=== PATIENT | male | born 1935 | race Caucasian/White ===

== ENCOUNTER 2018-12-07 15:58 | Inpatient (IN) | payer OTHER ==
--- NOTE | 2018-12-07 16:13 | EDPHY ---
H & P Time Seen by Provider: 12/07/18 16:01 HPI/ROS: Chief complaint. Weakness HPI. 83-year-old male with 10 days of cough and congestion. He now has dyspnea on exertion. Generalized weakness and fatigue. He went to the gym today and came home took a nap for 2 hr which is unusual. Decreased appetite. No chest pain. No fever that he is aware. He feels that he is off balance and fall and today was driving home from the gym and ended up on the sidewalk in his car. No injury and no damage. No abdominal pain, vomiting, diarrhea. Denies urinary symptoms. No rash. He did have flu 2 months ago and this feels similar. However no known recent sick contacts other than going to the rec center most days. ROS 10 systems were reviewed and negative with the exception of the elements mentioned in the history of present illness Past Medical/Surgical History: Gout, diabetes, hypertension Social History: , nonsmoker, no alcohol Smoking Status: Former smoker Physical Exam: General Appearance: Alert well-developed male moderate distress vital signs show temp 37.4 degrees, heart rate 115, O2 saturation 88-90% on room air. Blood pressure stable 143/66 Eyes: Pupils equal and round no pallor or injection. ENT, pharynx mildly injected without exudate Respiratory: Distant breath sounds. Mild rhonchi. Cardiovascular: Regular rate and rhythm with tachycardia Gastrointestinal: Abdomen is soft and nontender, no masses, bowel sounds normal. Neurological: Awake and alert, sensory and motor exams grossly normal. Skin: Warm and dry, no rashes. Musculoskeletal: Neck is supple nontender. Extremities symmetrical, full range of motion. Psychiatric: Patient is oriented X 3, there is no agitation. Constitutional: Initial Vital Signs Temperature (C) 37.4 C 12/07/18 16:06 Heart Rate 115 H 12/07/18 16:06 Respiratory Rate 16 12/07/18 16:06 Blood Pressure 143/66 H 12/07/18 16:06 O2 Sat (%) 91 L 12/07/18 16:06 O2 Delivery Mode Room Air O2 (L/minute) 2 Allergies/Adverse Reactions: No Known Allergies Allergy (Unverified 12/07/18 16:05) Home Medications: Medication Instructions Recorded Allopurinol 12/07/18 Losartan Potassium 12/07/18 Lovastatin 12/07/18 Metformin HCl 12/07/18 Pantoprazole Sodium 12/07/18 Medical Decision Making - Diagnostics EKG Interpretation: EKG interpreted by me shows sinus tachycardia. Normal interval. Left axis deviation. QRS normal there is no significant ST elevation or depression. Rate is 112 Imaging Results: Chest x-ray interpreted by me shows early right side pneumonia. Procedures: IV normal saline. Monitor. Oxygen Sepsis workup ED Course/Re-evaluation: Lactate is negative. IV Rocephin after blood cultures Patient is re-evaluated at 5:15 p.m.. He stable though remains tachycardic. Patient is and I discussed treatment plan including recommendation for admission. He expresses understanding and agreement I consulted discussed the case with who agrees to the admission Differential Diagnosis: I considered pneumonia, COPD, influenza. Patient is tachycardic though improved. He is hypoxic. No evidence for sepsis - Data Points Laboratory Results: Laboratory Results 12/07/18 16:20 12/07/18 16:20 12/07/18 12/07/18 12/07/18 17:08 17:07 17:00 WBC RBC Hgb Hct MCV MCH MCHC RDW Plt Count MPV Neut % (Auto) Lymph % (Auto) Newton % (Auto) Eos % (Auto) Baso % (Auto) Nucleat RBC Rel Count Absolute Neuts (auto) Absolute Lymphs (auto) Absolute Monos (auto) Absolute Eos (auto) Absolute Basos (auto) Absolute Nucleated RBC Immature Gran % Immature Gran # Platelet Estimate Smear Review By PT INR APTT VBG Lactic Acid 1.2 mmol/L mmol/L (0.7-2.1) Sodium Potassium Chloride Carbon Dioxide Anion Gap BUN Creatinine Estimated GFR Glucose Calcium Total Bilirubin POC Troponin I 0.03 ng/mL ng/mL (0.00-0.08) Nasal Influenza A PCR Pending Nasal Influenza B PCR Pending 12/07/18 12/07/18 12/07/18 16:20 16:20 16:20 WBC 22.96 10^3/uL H 10^3/uL (3.80-9.50) RBC 2.42 10^6/uL L 10^6/uL (4.40-6.38) Hgb 9.7 g/dL L g/dL (13.7-17.5) Hct 27.9 % L % (40.0-51.0) MCV 115.3 fL H fL (81.5-99.8) MCH 40.1 pg H pg (27.9-34.1) MCHC 34.8 g/dL g/dL (32.4-36.7) RDW 15.1 % % (11.5-15.2) Plt Count 149 10^3/uL L 10^3/uL (150-400) MPV 11.3 fL fL (8.7-11.7) Neut % (Auto) Pending Lymph % (Auto) Pending Newton % (Auto) Pending Eos % (Auto) Pending Baso % (Auto) Pending Nucleat RBC Rel Count Pending Absolute Neuts (auto) Pending Absolute Lymphs (auto) Pending Absolute Monos (auto) Pending Absolute Eos (auto) Pending Absolute Basos (auto) Pending Absolute Nucleated RBC Pending Immature Gran % Pending Immature Gran # Pending Platelet Estimate Pending Smear Review By Pending PT 16.3 SEC H SEC (12.0-15.0) INR 1.29 H (0.83-1.16) APTT 30.7 SEC SEC (23.0-38.0) VBG Lactic Acid Sodium 128 mEq/L L mEq/L (135-145) Potassium 4.3 mEq/L mEq/L (3.5-5.2) Chloride 93 mEq/L L mEq/L (97-110) Carbon Dioxide 22 mEq/l mEq/l (22-31) Anion Gap 13 mEq/L mEq/L (6-14) BUN 22 mg/dL mg/dL (7-23) Creatinine 1.6 mg/dL H mg/dL (0.7-1.3) Estimated GFR 42 Glucose 124 mg/dL H mg/dL (70-100) Calcium 9.2 mg/dL mg/dL (8.5-10.4) Total Bilirubin 0.9 mg/dL mg/dL (0.1-1.4) POC Troponin I Nasal Influenza A PCR Nasal Influenza B PCR Medications Given: Discontinued Medications Albuterol/Ipratropium (Duoneb) 3 ml IH EDNOW ONE Stop: 12/07/18 16:26 Last Admin: 12/07/18 16:43 Dose: 3 ml Sodium Chloride (Ns) 1,000 mls @ 0 mls/hr IV EDNOW ONE; Wide Open PRN Reason: Protocol Stop: 12/07/18 16:26 Last Admin: 12/07/18 16:43 Dose: 1,000 mls Point of Care Test Results: Chemistry 12/07/18 17:07 POC Troponin I 0.03 ng/mL ng/mL (0.00-0.08) Departure - Departure Disposition: [facility] Inpatient Acute Clinical Impression: Pneumonia Qualifiers: Pneumonia type: due to unspecified organism Laterality: right Lung location: lower lobe of lung Qualified Code(s): J18.1 - Lobar pneumonia, unspecified organism Condition: Fair Referrals: Patient,NotPresent [Unknown] - As per Instructions
[2018-12-07] MEDS ORDERED: IPRATROPIUM/ALBUTEROL 3 ML DEYVIAL IH ONE (16:25)
[2018-12-07] MEDS ORDERED: NS 1,000 ML IV ONE (16:25)
[2018-12-07 16:53] LABS: PLATELET COUNT 149 10^3/uL (150-400)
[2018-12-07 17:06] LABS: INR 1.29 (0.83-1.16); PROTIME(PATIENT) 16.3 SEC (12.0-15.0)
[2018-12-07] MEDS ORDERED: PROMETHAZINE HCL 25 MG/ML INJ IVP PRN (18:39)
[2018-12-07] MEDS ORDERED: ONDANSETRON DISINTEGRATING 4 MG TAB PO PRN (18:39)
[2018-12-07] MEDS ORDERED: ACETAMINOPHEN 325 MG TAB PO PRN (18:39)
[2018-12-07] MEDS ORDERED: ONDANSETRON 4 MG/2 ML VIAL IVP PRN (18:39)
[2018-12-07] MEDS ORDERED: ALBUTEROL 3 ML DEYVIAL IH PRN (18:39)
[2018-12-07] MEDS ORDERED: NS 1,000 ML IV SCH (18:45)
--- NOTE | 2018-12-07 19:43 | CPEKG ---
Test Reason : OPEN Blood Pressure : / mmHG Vent. Rate : 112 BPM Atrial Rate : 112 BPM P-R Int : 171 ms QRS Dur : 085 ms QT Int : 344 ms P-R-T Axes : 060 -18 000 degrees QTc Int : 470 ms Sinus tachycardia Probable LVH with secondary repol abnrm Anterior Q waves, possibly due to LVH Confirmed by Rick Whitt ([id number]) on 12/07/2018 7:42:51 PM Referred By: Confirmed By:Rick Whitt
--- NOTE | 2018-12-07 19:45 | PDGENHP ---
History and Physical - Chief Complaint cough/sob - History of Present Illness 83 yo M with PMH that includes DM, HTN and prior GI bleed due to NSAIDs who presents with 2 days of cough, malaise and sob. He notes he has had significant 'coughing jags' particularly at night, but during the day at times as well. The cough is not productive. He has been very somnolent and fatigued and sleeping more often than normal. He has still been active and going to the gym as he normally would do but today when he got home from the gym he looked so poorly that his daughter called 911. He notes he initially began having similar sxs before about 2 months ago, the symptoms improved but never really went away and over the last couple of days got much worse although he was not going to seek care had his daughter not insisted. He denies any chronic lung issues and does not use oxygen at baseline. He has not had fever and has not associated sxs such as n/v or urinary issues. He has not noticed any change in his stools including blood or dark stools. History Information - Allergies/Home Medication List Allergies/Adverse Reactions: No Known Allergies Allergy (Unverified 12/07/18 16:05) Home Medications: Allopurinol [Allopurinol 300 MG (RX)] 300 mg PO DAILY 12/07/18 [Last Taken 12/07 09:00] Aspirin EC [Aspirin EC 81 mg (*)] 81 mg PO HS 12/07/18 [Last Taken 12/06/18] Losartan Potassium [Cozaar 25 mg (*)] 25 mg PO DAILY 12/07/18 [Last Taken 09:00] Lovastatin 20 mg PO HS 12/07/18 [Last Taken 12/06/18] Pantoprazole Sodium [Protonix 40mg (*)] 40 mg PO DAILY 12/07/18 [Last Taken 09:00] Triamcinolone Acetonide [Triamcinolone Acetonide] 1 yolanda TP BID PRN 12/07/18 [ Last Taken 12/06/18] metFORMIN HCL [Glucophage 500 mg (*)] 500 mg PO DAILY 12/07/18 [Last Taken 12/07 09:00] I have personally reviewed and updated: family history, medical history, social history, surgical history - Past Medical History diabetes type 2, GERD, hypertension, hyperlipidemia Additional medical history: CKD--stage 1, 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 gout. GI bleed 2/2 NSAIDs. anemia. psoriasis - Surgical History Additional surgical history: cataract - Family History Positive for: non-pertinent - Social History Smoking Status: Former smoker (quit in 1987) Alcohol Use: Rarely Drug Use: None Additional social history: , active Review of Systems Review of Systems: ROS: 10pt was reviewed & negative except for what was stated in HPI & below Physical Exam Physical Exam: Temp Pulse Resp BP Pulse Ox 37.5 C 111 H 16 128/61 H 94 12/07/18 17:55 12/07/18 17:55 12/07/18 17:55 12/07/18 17:55 12/07/18 17:55 Constitutional: no apparent distress, appears nourished Eyes: PERRL, anicteric sclera Ears, Nose, Mouth, Throat: moist mucous membranes, hearing normal Cardiovascular: regular rate and rhythym, no murmur, rub, or gallop, No edema Respiratory: no respiratory distress, reduced air movement, expiratory wheeze Gastrointestinal: normoactive bowel sounds, soft, non-tender abdomen, no palpable masses Genitourinary: no bladder tenderness Skin: warm, normal color Musculoskeletal: full muscle strength, no muscle tenderness Neurologic: AAOx3 Psychiatric: interacting appropriately, not anxious, not encephalopathic Lab Data & Imaging Review 12/07/18 16:20 12/07/18 16:20 WBC 22.96 10^3/uL (3.80-9.50) H 12/07/18 16:20 RBC 2.42 10^6/uL (4.40-6.38) L 12/07/18 16:20 Hgb 9.7 g/dL (13.7-17.5) L 12/07/18 16:20 Hct 27.9 % (40.0-51.0) L 12/07/18 16:20 MCV 115.3 fL (81.5-99.8) H 12/07/18 16:20 MCH 40.1 pg (27.9-34.1) H 12/07/18 16:20 MCHC 34.8 g/dL (32.4-36.7) 12/07/18 16:20 RDW 15.1 % (11.5-15.2) 12/07/18 16:20 Plt Count 149 10^3/uL (150-400) L 12/07/18 16:20 MPV 11.3 fL (8.7-11.7) 12/07/18 16:20 Neut % (Auto) Not Reported 12/07/18 16:20 Lymph % (Auto) Not Reported 12/07/18 16:20 [place] % (Auto) Not Reported 12/07/18 16:20 Eos % (Auto) Not Reported 12/07/18 16:20 Baso % (Auto) Not Reported 12/07/18 16:20 Nucleat RBC Rel Count Not Reported 12/07/18 16:20 Absolute Neuts (auto) Not Reported 12/07/18 16:20 Absolute Lymphs (auto) Not Reported 12/07/18 16:20 Absolute Monos (auto) Not Reported 12/07/18 16:20 Absolute Eos (auto) Not Reported 12/07/18 16:20 Absolute Basos (auto) Not Reported 12/07/18 16:20 Absolute Nucleated RBC Not Reported 12/07/18 16:20 Immature Gran % Not Reported 12/07/18 16:20 Seg Neutrophils % 61.0 % 12/07/18 16:20 Band Neutrophils % 9.0 % 12/07/18 16:20 Lymphocytes % 3.0 % 12/07/18 16:20 Monocytes % 23.0 % 12/07/18 16:20 Eosinophils % 1.0 % 12/07/18 16:20 Basophils % 0.0 % 12/07/18 16:20 Metamyelocytes % 3.0 % 12/07/18 16:20 Myelocytes % 0.0 % 12/07/18 16:20 Promyelocytes % 0.0 % 12/07/18 16:20 Blast Cells % 0.0 % 12/07/18 16:20 Immature Gran # Not Reported 12/07/18 16:20 Absolute Seg Neuts 14.01 10^3/uL (1.70-6.50) H 12/07/18 16:20 Absolute Band Neuts 2.07 10^3/uL (0.00-0.70) H 12/07/18 16:20 Absolute Lymphocytes 0.69 10^3/uL (1.00-3.00) L 12/07/18 16:20 Absolute Monocytes 5.28 10^3/uL (0.30-0.80) H 12/07/18 16:20 Absolute Eosinophils 0.23 10^3/uL (0.03-0.40) 12/07/18 16:20 Absolute Basophils 0.00 10^3/uL (0.02-0.10) L 12/07/18 16:20 Absolute Metamyelocyte 0.69 10^3/mL (0.00-0.00) H 12/07/18 16:20 Absolute Myelocytes 0.00 10^3/mL (0.00-0.00) 12/07/18 16:20 Absolute Promyelocytes 0.00 10^3/uL (0.00-0.00) 12/07/18 16:20 Absolute Plasma Cells 0.00 10^3/uL (0.00-0.00) 12/07/18 16:20 Nucleated RBCs 0 /100 WBC (0-0) 12/07/18 16:20 Absolute Blast Cells 0.00 10^3/uL (0.00-0.00) 12/07/18 16:20 Plasma Cells % 0.0 % 12/07/18 16:20 Platelet Estimate ADEQUATE (ADEQ) 12/07/18 16:20 Polychromasia 1+ H 12/07/18 16:20 Oval Macrocytes 2+ H 12/07/18 16:20 PT 16.3 SEC (12.0-15.0) H 12/07/18 16:20 INR 1.29 (0.83-1.16) H 12/07/18 16:20 APTT 30.7 SEC (23.0-38.0) 12/07/18 16:20 VBG Lactic Acid 1.2 mmol/L (0.7-2.1) 12/07/18 17:08 Sodium 128 mEq/L (135-145) L 12/07/18 16:20 Potassium 4.3 mEq/L (3.5-5.2) 12/07/18 16:20 Chloride 93 mEq/L (97-110) L 12/07/18 16:20 Carbon Dioxide 22 mEq/l (22-31) 12/07/18 16:20 Anion Gap 13 mEq/L (6-14) 12/07/18 16:20 BUN 22 mg/dL (7-23) 12/07/18 16:20 Creatinine 1.6 mg/dL (0.7-1.3) H 12/07/18 16:20 Estimated GFR 42 12/07/18 16:20 Glucose 124 mg/dL (70-100) H 12/07/18 16:20 Calcium 9.2 mg/dL (8.5-10.4) 12/07/18 16:20 Total Bilirubin 0.9 mg/dL (0.1-1.4) 12/07/18 16:20 POC Troponin I 0.03 ng/mL (0.00-0.08) 12/07/18 17:07 Urine Color YELLOW 12/07/18 19:00 Urine Appearance CLEAR 12/07/18 19:00 Urine pH 5.0 (5.0-7.5) 12/07/18 19:00 Ur Specific [place] 1.012 (1.002-1.030) 12/07/18 19:00 Urine Protein 1+ (NEGATIVE) H 12/07/18 19:00 Urine Ketones NEGATIVE (NEGATIVE) 12/07/18 19:00 Urine Blood NEGATIVE (NEGATIVE) 12/07/18 19:00 Urine Nitrate NEGATIVE (NEGATIVE) 12/07/18 19:00 Urine Bilirubin NEGATIVE (NEGATIVE) 12/07/18 19:00 Urine Urobilinogen NEGATIVE EU (0.2-1.0) 12/07/18 19:00 Ur Leukocyte Esterase NEGATIVE (NEGATIVE) 12/07/18 19:00 Urine RBC 1-3 /hpf (0-3) 12/07/18 19:00 Urine WBC 1-3 /hpf (0-3) 12/07/18 19:00 Ur Epithelial Cells NONE SEEN /lpf (NONE-1+) 12/07/18 19:00 Amorphous Sediment PRESENT /hpf (NONE-1+) 12/07/18 19:00 Hyaline Casts 1-5 /lpf (0-1) 12/07/18 19:00 Urine Mucus TRACE /lpf (NONE-1+) 12/07/18 19:00 Urine Glucose NEGATIVE (NEGATIVE) 12/07/18 19:00 Nasal Influenza A PCR NEGATIVE FOR FLU A (NEGATIVE) 12/07/18 17:00 Nasal Influenza B PCR NEGATIVE FOR FLU B (NEGATIVE) 12/07/18 17:00 Visualized and Interpreted Chest x-ray results: Yes Chest X-Ray results: other (scarring versus 'reticulation' versus infiltrate, CM ) Visualized and Interpreted EKG results: Yes EKG additional interpertation: sinus tach, secondary repol 2/2 LVH Assessment & Plan Assessment: Pneumonia (Acute) 83 yo M with PMH that includes DM, HTN and GI bleed with anemia for the last year presenting with sepsis and concerns for pna # sepsis: patient with wbc > 22K and tachycardia with respiratory complaints concerning for PNA as next, resp PCR pending, blood and sputum cultures pending , HD stable without e/o end organ dysfunction currently # PNA: CXR with findings that appear at least in part chronic though difficult to assess if there may be pna as well as more chronic scarring present, given concurrent sepsis and respiratory findings started on ctx/azithro, cultures pending. Will get repeat CXR in am, consider f/u CT chest versus pulmonary consultation if patient not improving as expected especially in light of length of sxs # abnormal ecg: with concern for LVH and CXR showing CM as well, patient does not appear volume overloaded on exam but query if CHF could be contributing to above, will get BNP and echo in am (patient has not had echo previously it does not appear) # remington on ckd: presumably due to hypovolemia in setting of current illness, will hold ARB and metformin, gentle IVF overnight and re-evaluate # anemia: with hx of prior GI bleed but nothing by history to suggest acute bleed, has been anemic on labs here for the last year, macrocytic currently-- will check b12/tsh/lfts and iron studies and trend # DM: on metformin usually but holding given remington, last A1c of 5.6 # gout: continue allopurinol, renally dosed # IP status, patient will likely require > 48 hours stay for eval/mgmt of above Patient new to my care. Old records reviewed and summarized as above. Care plan reviewed with ER doctor and further hx obtained from patients present at bedside.
[2018-12-07] MEDS ORDERED: TRIAMCINOLONE ACETONIDE TP PRN (19:51)
[2018-12-07] MEDS: AZITHROMYCIN IV 500 MG in NS 250 ML IV SCH (20:47)
[2018-12-07] MEDS: IPRATROPIUM/ALBUTEROL 3 ML DEYVIAL IH SCH (23:32)
[2018-12-07] MEDS: HYDROCODONE/APAP 5/325 TAB PO PRN (23:35)
[2018-12-07] MEDS: ASPIRIN EC 81 MG TAB PO SCH (23:35)
[2018-12-07] MEDS: PRAVASTATIN SODIUM 20 MG TAB PO SCH (23:35)
[2018-12-08] MEDS: IPRATROPIUM/ALBUTEROL 3 ML DEYVIAL IH SCH ×4 (05:34→20:27)
[2018-12-08 05:40] LABS: PLATELET COUNT 117 10^3/uL (150-400)
[2018-12-08] MEDS: ALLOPURINOL 300 MG TAB PO SCH (08:29)
[2018-12-08] MEDS: PANTOPRAZOLE SODIUM 40 MG TAB PO SCH (08:29)
--- NOTE | 2018-12-08 08:51 | PDMN ---
Medical Necessity Medical necessity: Pt meets inpt criteria per MD order and MCG M-160, Sepsis and Other Febrile Illness, without Focal Infection, A-3 days. 83 y/o w/hx DM, HTN, and GI bleed presenting w/cough/SOB and malaise, admitted w/sepsis- tachycardia, wbc's 23, possible PNA per CXR, ?CHF w/BNP 684, abnormal EKG, hyponatremic w/Na 128, KATIE on CKD- creat 1.6. Anticipate>2MN for ongoing eval/ management of above.
[2018-12-08] MEDS: AZITHROMYCIN IV 500 MG in NS 250 ML IV SCH (09:25)
[2018-12-08] MEDS ORDERED: IOPAMIDOL (ISOVUE 370) 75 ML BTL IV ONE (14:26)
--- NOTE | 2018-12-08 17:19 | ECHO ---
[email or web address] [address] [address] Main: [phone] Fax: Transthoracic Echocardiogram Name: CHAVEZ SCANLON MR#: [id number] Study Date: 12/08/2018 Study Time: 08:01 AM Date of : 1935 Age: 83 year(s) Height: 190.5 cm (75 in.) Weight: 85.28 kg (188 lb.) BSA: 2.14 m2 Gender: Male Examination: Echo Indication: Chronic Cough, Eval for CHF Image Quality: Contrast: Requested by: Terrance Morales BP: 130 mmHg/72 mmHg Heart Rate: Rhythm: Tachycardia Indication: Chronic Cough, Eval for CHF Procedure Staff Plant Operations Manager: Leighton Mota RDCS Reading Physician: Sp Mondragon MD Requesting Provider: Conclusions: Normal size left ventricle. Mild concentric LV hypertrophy. Normal global systolic LV function. EF is 64 %. No regional wall motion abnormality. Grade 1 diastolic dysfunction (abnormal relaxation). Normal RV function. The left atrium is normal in size. There is mild thickening of the mitral valve leaflets. There is no significant mitral valve regurgitation. No aortic valve stenosis is present. The pulmonary artery pressure is moderately increased. Right ventricular systolic pressure measures 48mmHg. Measurements: Chambers Valvular Assessment AV/MV Valvular Assessment TV/PV Normal Normal Normal Name Value Range Name Value Range Name Value Range Ao Renetta (MM): 3.0 cm (2.2 cm-3.7 AV Vmax: 1.98 m/s (1 m/s-1.7 TR Vmax: 3.27 mm/s ( - ) cm) m/s) TR PGmax: 43 mmHg ( - ) IVSd (2D): 0.9 cm (0.6 cm-1.1 AV maxP mmHg ( - ) syst. PAP: 48 mmHg ( - ) cm) LVOT Vmax: 1.37 m/s (0.7 m/s-1.1 PV Vmax: 1.32 m/s (0.6 m/s-0.9 LVDd (2D): 5.1 cm (4.2 cm-5.9 m/s) m/s) cm) MV E Vmax: 0.77 m/s ( - ) PV PGmax: 7 mmHg ( - ) LVDs (2D): 3.3 cm (2.1 cm-4 MV A Vmax: 1.18 m/s ( - ) cm) MV E/A: 0.65 ( - ) LVPWd (2D): 1.1 cm (0.6 cm-1 cm) LVEF (2D): 64 (>=54 %) Patient: CHAVEZ SCANLON Study Date: 12/08/2018 Page 1 of 2 08:01 AM Continued Measurements: Chambers Valvular Assessment AV/MV Valvular Assessment TV/PV Name Value Name Value Name Value LADs Lon.6 cm MV E/E' Septal: 15.50 CVP (est.): 5 mmHg LA Area: 16.8 cm2 MV E/E' Lateral: 8.70 Findings: Left Ventricle: Normal size left ventricle. Mild concentric LV hypertrophy. Normal global systolic LV function. EF is 64 %. No regional wall motion abnormality. Grade 1 diastolic dysfunction (abnormal relaxation). Right Ventricle: Normal size right ventricle. Normal RV function. Left Atrium: The left atrium is normal in size. Right Atrium: The right atrium is normal in size. Mitral Valve: Mild mitral annular calcification. There is mild thickening of the mitral valve leaflets. There is no significant mitral valve regurgitation. Aortic Valve: Minimal aortic cusp calcification is noted. The aortic valve is tri-leaflet. There is no significant aortic valve regurgitation. No aortic valve stenosis is present. Tricuspid Valve: The tricuspid valve is normal in appearance and function. Mild to moderate tricuspid valve regurgitation. The pulmonary artery pressure is moderately increased. Right ventricular systolic pressure measures 48mmHg. Pulmonic Valve: The pulmonic valve is normal in appearance and function. Aorta: The aorta is normal. IVC: The IVC is not visualized. Pericardium: No pericardial effusion. (No Signature Object) Patient: CHAVEZ SCANLON Study Date: 12/08/2018 Page 2 of 2 08:01 AM [id number]
--- NOTE | 2018-12-08 17:21 | HOSPPROG ---
Hospitalist Progress Note Assessment/Plan: * Pneumonia -ceftriaxone, azithro * Sepsis due to pneumonia -still very tachycardic * ARF - follow creatinine, on IVF -holding ARB and metformin * DM - hold metformin Subjective: Better Objective: Vital Signs Temp Pulse Resp BP Pulse Ox 37.1 C 99 18 138/60 H 96 12/08/18 15:17 12/08/18 15:25 12/08/18 15:25 12/08/18 15:17 12/08/18 15:25 Laboratory Results 12/08/18 05:00 12/08/18 05:00 12/07/18 12/08/18 12/09/18 05:59 05:59 05:59 Intake Total 1450 1310 Output Total 1300 900 Balance 150 410 PT 16.3 SEC (12.0-15.0) H 12/07/18 16:20 INR 1.29 (0.83-1.16) H 12/07/18 16:20 CTA chest - no PE, + PNA CXR viewed, my personal interpretation is - minimal infiltrate tele reviewed - sinus tachy vs MAT - Physical Exam Constitutional: no apparent distress, appears nourished, not in pain Cardiovascular: regular rate and rhythym, no murmur, rub, or gallop Respiratory: no respiratory distress, no rales or rhonchi, clear to auscultation Gastrointestinal: normoactive bowel sounds, soft, non-tender abdomen, no palpable masses Skin: no rashes or abrasions, no fluctuance, no induration Neurologic: AAOx3, sensation intact bilaterally Psychiatric: interacting appropriately, not anxious, not encephalopathic, thought process linear ICD10 Worksheet Patient Problems: Problems Problem Status Onset Pneumonia Acute
--- NOTE | 2018-12-08 17:26 | ASMTCMCOM ---
CM Note CM Note Notes: Pt presents with pnemonia. at baseline is active. lives with family. D/C plan: TBD. Date Signed: 12/08/2018 05:25 PM Electronically Signed By:MARLEN Mendoza
[2018-12-08] MEDS: ASPIRIN EC 81 MG TAB PO SCH (20:24)
[2018-12-08] MEDS: PRAVASTATIN SODIUM 20 MG TAB PO SCH (20:24)
[2018-12-08] MEDS: HYDROCODONE/APAP 5/325 TAB PO PRN (20:24)
[2018-12-09 05:19] LABS: PLATELET COUNT 108 10^3/uL (150-400)
[2018-12-09] MEDS: IPRATROPIUM/ALBUTEROL 3 ML DEYVIAL IH SCH ×2 (05:45→11:22)
[2018-12-09] MEDS: PANTOPRAZOLE SODIUM 40 MG TAB PO SCH (08:28)
[2018-12-09] MEDS: ALLOPURINOL 300 MG TAB PO SCH (08:28)
[2018-12-09] MEDS: AZITHROMYCIN IV 500 MG in NS 250 ML IV SCH (08:28)
[2018-12-09 11:11] VITALS: BP 118/53
[2018-12-09] MEDS ORDERED: BENZONATATE 100 MG CAP PO PRN (13:17)
--- NOTE | 2018-12-09 14:14 | ASDISCHSUM ---
Discharge Information Plan Status:Home with No Needs Medically Cleared to Leave:12/08/2018 Discharge Date:12/09/2018 02:00 PM CM D/C Disposition:Home, Routine, Self-Care ADT D/C Disposition:Home, Routine, Self-Care Projected Discharge Date:12/09/2018 02:00 PM Transportation at D/C:Family Discharge Delay Reason: Follow-Up Date:12/09/2018 02:00 PM Discharge Slot: Final Diagnosis:Pneumonia Placement Information Patient Contact Information Contact Name:DEBRA Relationship: Address:[address] Work Phone: City:[place] Alternate Phone: [facility]/Zip Code:[place] [address] Email: Financial Information Financial Class:Medicare Advantage Plans Primary Plan Desc:[facility] [employer] Primary Plan Number:[id number] Secondary Plan Desc: Secondary Plan Number: Assessment Information LACE LACE Length of stay for Answers: 2 days current admission Acuity / Level of Answers: Yes Care: Did the patient have an inpatient admission? Comorbidities - select Answers: Diabetes (uncontrolled or all that apply controlled) Mild liver or renal disease Other Notes: HTN; HLD, Pneumonia # of Emergency department Answers: 1-2 visits in the last 6 months Score: 10 Date Signed: 12/09/2018 02:11 PM Electronically Signed By:Analy Mitchell [facility] CM Progress Note CM Note CM Note Notes: Pt presents with pnemonia. at baseline is active. lives with family. D/C plan: TBD. Date Signed: 12/08/2018 05:25 PM Electronically Signed By:MARLEN Mendoza Case Management Discharge Plan Note Case Management Discharge Discharge Order Complete? Answers: Yes Patient to Obtain Answers: via Family Medications Transportation Arranged Answers: Family/Friends Transport will Pick (Date 12/09/2018 12:00 AM & Time) Family Notified Answers: Yes Notes: in the room Discharge Comments Notes: Spoke with pt and in the room. Pt amenable to discharging independently. Therapies have cleared him for independent discharge. No CM needs noted at this time. Date Signed: 12/09/2018 02:13 PM Electronically Signed By:Analy Mitchell Intervention Information
--- NOTE | 2018-12-09 18:24 | GDS ---
DISCHARGE DIAGNOSES: 1. Community-acquired pneumonia. 2. Sepsis due to pneumonia. 3. Acute renal failure. 4. Diabetes. HISTORY: The patient is an 83-year-old male who presented with cough, malaise, and shortness of gabriel th. He was diagnosed with community-acquired pneumonia. He had persistent tachycardia, and a CT ang iogram of the chest was performed. That was negative for pulmonary embolus but did confirm infiltrat e. He improved over the next 48 hours. His tachycardia resolved. I do suspect it may have been bro ught on by nebulizer treatments. He feels quite well. He is off oxygen. He is ambulating well. DISCHARGE MEDICATIONS: Please see computerized record for full detailed list. New medications: 1. Ceftin 500 mg p.o. b.i.d. for 4 more days. 2. Azithromycin 500 mg p.o. daily for 4 more days. 3. Tessalon Perles as needed. DISCHARGE INSTRUCTIONS: Follow up with primary care. Greater than 30 minutes' time spent arranging this discharge. Patient was seen and examined by me on the day of discharge. /[id number]/MODL
== END 2018-12-09 14:00 | disposition home or self-care (01) | DRG 871 ==
LOC: EDUNIT# → OBSVTOIN 20:02 → F1N 22:14
PROVIDERS: ADMIT Internal Medicine; ATTEND Internal Medicine
DX: A41.9 Sepsis, unspecified organism (principal); J18.8 Other pneumonia, unspecified organism; N17.9 Acute kidney failure, unspecified; E11.9 Type 2 diabetes mellitus without complications; E86.9 Volume depletion, unspecified; I10 Essential (primary) hypertension; M10.9 Gout, unspecified; Z87.891 Personal history of nicotine dependence; Z79.84 Long term (current) use of oral hypoglycemic drugs
CPT/HCPCS: 82607-90; 84484-ER; 87449-90; 96365; 97116-GP; 97161-GP; 97165-GO; J0456; J0696; Q9967